=== PATIENT | male | born 1945 | race Caucasian/White ===

== ENCOUNTER 2017-01-26 08:36 | Day surgery (SDC) | payer OTHER ==
[2017-01-25 14:04] VITALS: BMI 22.6
[2017-01-26] MEDS ORDERED: LIDOCAINE HCL/PF 2% SDV 5ML VIAL ONE (10:24)
[2017-01-26 11:04] VITALS: TEMP 97.3
[2017-01-26 11:20] VITALS: BP 121/73; PULSE 60
--- NOTE | 2017-01-27 14:25 | PATH ---
Surgical Pathology Report Patient Name: YOSELYN OLSEN [facility]. Rec. #: [id number] /Age/Gender: 1945 (Age: 71) / M Account: [id number] Location: U-ENDOSCOPY Taken: 01/26/2017 Received: 01/26/2017 Reported: 01/27/2017 Physicians: Juan Francisco Carranza M.D. Specimen(s) Received A: BX DUODENUM B: BX NODULAR MUCOSA OF BODY Clinical History Epigastric pain despite medication Nodular mucosa in body Final Diagnosis A. DUODENUM, BIOPSY: DUODENAL MUCOSA WITH CHRONIC INFLAMMATION. NO HISTOLOGIC EVIDENCE OF GLUTEN SENSITIVE ENTEROPATHY (CELIAC DISEASE). B. STOMACH, BODY, NODULAR MUCOSA, BIOPSY: GASTRIC OXYNTIC MUCOSA WITH MODERATE CHRONIC GASTRITIS WITH FOCAL CHANGES SUGGESTIVE OF PPI EFFECT. IMMUNOSTAIN FOR H. PYLORI IS NEGATIVE FOR ORGANISMS. Electronically Signed Daljit Stevens M.D. Gross Description A. Received in formalin, labeled "biopsy duodenum" are 2 briscoe, irregular portions of soft tissue measuring 0.1 and 0.4 cm in greatest dimension. The specimens are submitted in toto in one cassette. B. Received in formalin, labeled "biopsy nodular mucosa in body" are 2 briscoe, irregular portions of soft tissue measuring 0.2 and 0.3 cm in greatest dimension. The specimens are submitted in toto in one cassette. 01/26/201701/26/2017
== END 2017-01-26 11:51 | disposition home or self-care (01) ==
LOC: JASU-ENDO 08:36
PROVIDERS: ATTEND Internal Medicine Gastroenterology
PROC: 0DB68ZX Excision of Stomach, Via Natural or Artificial Opening Endoscopic, Diagnostic (ICD-10-PCS; 2017-01-26)
PROC: 0DB98ZX Excision of Duodenum, Via Natural or Artificial Opening Endoscopic, Diagnostic (ICD-10-PCS; principal; 2017-01-26 09:30)
DX: R10.13 Epigastric pain (principal); K31.9 Disease of stomach and duodenum, unspecified
CPT/HCPCS: 88305-TC; 88342-TC

== ENCOUNTER 2021-01-24 00:10 | Emergency (ER) | payer OTHER ==
[2021-01-24 00:23] VITALS: BP 157/78; TEMP 97.5; BMI 20.5
[2021-01-24] MEDS ORDERED: FAMOTIDINE 20 MG/50 ML IVPB 20 MG/50 ML MG IVPB ONE ×2 (00:43→01:06)
[2021-01-24] MEDS ORDERED: MAG HYDROX/AL HYDROX/SIMETH 30 ML UNIT-DOSE CUP PO ONE (00:43)
[2021-01-24] MEDS ORDERED: LACTATED RINGERS SOLUTION 1000 ML INFUS.BAG IV ONE (00:44)
[2021-01-24] MEDS ORDERED: MAG HYDROX/AL HYDROX/SIMETH 30 ML UNIT-DOSE CUP ONE ×2 (00:49→01:06)
[2021-01-24] MEDS ORDERED: SUCRALFATE 1 GM TABLET (FP) PO ONE (01:01)
[2021-01-24] MEDS ORDERED: LIDOCAINE VISCOUS 2% ORAL/TOP 20 ML UNIT-DOSE CUP MM ONE (01:02)
[2021-01-24] MEDS ORDERED: LIDOCAINE VISCOUS 2% ORAL/TOP 20 ML UNIT-DOSE CUP ONE (01:14)
[2021-01-24] MEDS ORDERED: SUCRALFATE 1 GM TABLET (FP) ONE (01:15)
[2021-01-24 01:19] LABS: BASO % 0.6 % (0-2.0); HEMATOCRIT 40.9 % (35.4-49); HEMOGLOBIN 13.7 GM/dL (11.7-16.9); LYMPH % 28.7 % (8-40); MCH 29.5 pg (25.7-33.7); MCHC 33.4 g/dl (32.0-35.9); MEAN CELL VOLUME 88.4 fl (80-96); MEAN PLT VOLUME 9.3 fl (7.5-11.1); MONO % 10.5 % (3.8-10.2); NEUT % 56.2 % (42.8-82.8); PLATELET COUNT 195 K/MM3 (134-434); RBC 4.63 M/mm3 (4.00-5.60); RDW 14.1 % (11.9-15.9); WHITE BLOOD COUNT 6.2 K/mm3 (4.0-10.0)
[2021-01-24 01:35] LABS: CHLORIDE 103 mmol/L (98-107); POTASSIUM 4.1 mmol/L (3.5-5.1); SODIUM 137 mmol/L (136-145)
[2021-01-24 01:36] LABS: ALBUMIN 3.6 g/dl (3.4-5.0); ANION GAP 3 MMOL/L (8-16); BLOOD UREA NITROGEN 24.8 mg/dL (7-18); CALCIUM 9.3 mg/dL (8.5-10.1); CO2 31 mmol/L (21-32); GLUCOSE,RANDOM 155 mg/dL (74-106); LIPASE 166 U/L (73-393)
[2021-01-24 01:39] LABS: CREATININE 1.3 mg/dL (0.55-1.3); SGOT/AST 21 U/L (15-37); SGPT/ALT 25 U/L (13-61)
[2021-01-24 01:41] LABS: BILIRUBIN,TOTAL 0.5 mg/dL (0.2-1); TOT PROT 6.9 g/dl (6.4-8.2)
[2021-01-24 01:42] LABS: ALK PHOS 71 U/L (45-117)
[2021-01-24 05:39] VITALS: PULSE 86
== END 2021-01-24 05:59 | disposition home or self-care (01) ==
LOC: JER 00:10
PROC: 3E033GC Introduction of Other Therapeutic Substance into Peripheral Vein, Percutaneous Approach (ICD-10-PCS; principal; 2021-01-24)
DX: D3A.098 Benign carcinoid tumors of other sites (principal)
CPT/HCPCS: 36415; 74176-TC; 80053; 82550; 83690; 84484; 85025; 93005; 93010; 99285-25; C9803; U0003; U0005

== ENCOUNTER 2021-05-15 12:57 | Observation (INO) | payer OTHER ==
[2021-05-15 13:29] VITALS: BMI 21.8
[2021-05-15] MEDS ORDERED: FAMOTIDINE 20 MG/50 ML IVPB 20 MG/50 ML MG IVPB ONE ×2 (14:29→15:08)
[2021-05-15] MEDS ORDERED: LACTATED RINGERS SOLUTION 1000 ML INFUS.BAG IV ONE (14:29)
[2021-05-15] MEDS ORDERED: MAG HYDROX/AL HYDROX/SIMETH 30 ML UNIT-DOSE CUP PO ONE (14:44)
[2021-05-15] MEDS ORDERED: SUCRALFATE 1 GM TABLET (FP) PO ONE (14:44)
[2021-05-15] MEDS ORDERED: SUCRALFATE 1 GM TABLET (FP) ONE (15:08)
[2021-05-15 16:41] LABS: BASO % 0.3 % (0-2.0); EOS % 0.1 % (0-4.5); HEMATOCRIT 39.7 % (35.4-49); HEMOGLOBIN 13.3 GM/dL (11.7-16.9); LYMPH % 17.1 % (8-40); MCH 28.8 pg (25.7-33.7); MCHC 33.5 g/dl (32.0-35.9); MEAN CELL VOLUME 85.8 fl (80-96); MONO % 20.9 % (3.8-10.2); NEUT % 61.6 % (42.8-82.8); PLATELET COUNT 124 10^3/uL (134-434); RBC 4.63 M/mm3 (4.00-5.60); RDW 16.2 % (11.9-15.9); WHITE BLOOD COUNT 4.5 K/mm3 (4.0-10.0)
[2021-05-15 17:00] LABS: CHLORIDE 101 mmol/L (98-107); SODIUM 136 mmol/L (136-145)
[2021-05-15 17:03] LABS: ALBUMIN 3.7 g/dl (3.4-5.0); ANION GAP 8 MMOL/L (8-16); BLOOD UREA NITROGEN 16.1 mg/dL (7-18); CALCIUM 8.5 mg/dL (8.5-10.1); CO2 27 mmol/L (21-32); GLUCOSE,RANDOM 92 mg/dL (74-106)
[2021-05-15 17:06] LABS: CREATININE 1.1 mg/dL (0.55-1.3); SGOT/AST 25 U/L (15-37); SGPT/ALT 23 U/L (13-61)
[2021-05-15 17:08] LABS: BILIRUBIN,TOTAL 0.7 mg/dL (0.2-1); TOT PROT 6.6 g/dl (6.4-8.2)
[2021-05-15 17:09] LABS: ALK PHOS 65 U/L (45-117)
[2021-05-15 17:31] LABS: ANISOCYTOSIS 2+; MACROCYTOSIS 0; PLATELET ESTIMATE DECREASED
[2021-05-16] MEDS ORDERED: FAMOTIDINE 10 MG TABLET PO ONE (00:17)
[2021-05-16] MEDS ORDERED: MAG HYDROX/AL HYDROX/SIMETH 30 ML UNIT-DOSE CUP PO ONE (00:18)
[2021-05-16] MEDS ORDERED: SUCRALFATE 1 GM TABLET (FP) PO ONE (00:18)
[2021-05-16] MEDS ORDERED: FAMOTIDINE 10 MG TABLET ONE (00:20)
[2021-05-16] MEDS ORDERED: SUCRALFATE 1 GM TABLET (FP) ONE (00:20)
[2021-05-16] MEDS ORDERED: MAG HYDROX/AL HYDROX/SIMETH 30 ML UNIT-DOSE CUP ONE (00:21)
[2021-05-16] MEDS ORDERED: ONDANSETRON 4 MG/2 ML VIAL IVPUSH ONE (02:06)
[2021-05-16] MEDS ORDERED: ONDANSETRON 4 MG/2 ML VIAL ONE (02:13)
[2021-05-16 08:29] LABS: HEMATOCRIT 42.8 % (35.4-49); HEMOGLOBIN 14.3 GM/dL (11.7-16.9); MCH 28.7 pg (25.7-33.7); MCHC 33.5 g/dl (32.0-35.9); MEAN CELL VOLUME 85.8 fl (80-96); PLATELET COUNT 125 10^3/uL (134-434); RBC 4.99 M/mm3 (4.00-5.60); WHITE BLOOD COUNT 4.4 K/mm3 (4.0-10.0)
[2021-05-16] MEDS ORDERED: GABAPENTIN 100 MG CAPSULE ONE (08:45)
[2021-05-16] MEDS ORDERED: LISINOPRIL 5 MG TABLET ONE (08:45)
[2021-05-16] MEDS ORDERED: PANTOPRAZOLE 20 MG TABLET PO ONE (08:45)
[2021-05-16] MEDS ORDERED: ENOXAPARIN NA (PORCINE) 40 MG/0.4 ML DISP.SYRIN SQ ONE (08:46)
[2021-05-16 08:55] LABS: CHOLESTEROL 160 mg/dL (50-200)
[2021-05-16 08:56] LABS: TRIGLYCERIDES 69 mg/dL (0-150)
[2021-05-16 08:57] LABS: LDL CHOLESTEROL (ONLY SJRH) 90 mg/dL (5-100)
[2021-05-16 08:58] LABS: HDL CHOLESTEROL 59 mg/dL (40-60)
[2021-05-16 08:59] LABS: LDH 197 U/L (87-246)
[2021-05-16 09:01] LABS: N-TERMINAL BNP 529.9 pg/ml (5-450)
[2021-05-16] MEDS: LISINOPRIL 5 MG TABLET PO SCH (09:02)
[2021-05-16] MEDS: ENOXAPARIN NA (PORCINE) 40 MG/0.4 ML DISP.SYRIN SQ SCH (09:02)
[2021-05-16] MEDS: GABAPENTIN 300 MG CAPSULE PO SCH ×2 (09:02→22:23)
[2021-05-16] MEDS ORDERED: CLOPIDOGREL BISULFATE 75 MG TABLET (FP) PO SCH (10:00)
[2021-05-16] MEDS ORDERED: PANTOPRAZOLE 20 MG TABLET PO SCH (10:00)
[2021-05-16] MEDS ORDERED: POLYETHYLENE GLYCOL (HEALTHYLAX) 3350 17 GM PACKET ONE (18:57)
[2021-05-16] MEDS: POLYETHYLENE GLYCOL (HEALTHYLAX) 3350 17 GM PACKET PO SCH (19:00)
[2021-05-16] MEDS: ATORVASTATIN CA 20 MG TABLET (FP) PO SCH (22:23)
[2021-05-17] MEDS: PANTOPRAZOLE 40 MG TABLET PO SCH (06:23)
[2021-05-17 07:59] LABS: MCHC 33.3 g/dl (32.0-35.9); MEAN CELL VOLUME 87.3 fl (80-96); MEAN PLT VOLUME 9.5 fl (7.5-11.1); PLATELET COUNT 134 10^3/uL (134-434); RBC 5.16 M/mm3 (4.00-5.60); RDW 16.4 % (11.9-15.9); WHITE BLOOD COUNT 4.5 K/mm3 (4.0-10.0)
[2021-05-17] MEDS ORDERED: BENZOCAINE/MENTH/CETYLPYRD CL 1 EACH LOZENGE MM PRN (09:03)
[2021-05-17 09:43] LABS: ERYTHROCYTE SEDIMENTATION RATE 4 mm/hr (0-20)
[2021-05-17] MEDS: POLYETHYLENE GLYCOL (HEALTHYLAX) 3350 17 GM PACKET PO SCH ×2 (10:22→10:35)
[2021-05-17] MEDS: GABAPENTIN 300 MG CAPSULE PO SCH ×2 (10:22→21:27)
[2021-05-17] MEDS: ENOXAPARIN NA (PORCINE) 40 MG/0.4 ML DISP.SYRIN SQ SCH (10:22)
[2021-05-17] MEDS: DOCUSATE SODIUM 100 MG CAPSULE (FP) PO SCH ×2 (10:22→10:35)
[2021-05-17] MEDS: LISINOPRIL 5 MG TABLET PO SCH (10:22)
[2021-05-17] MEDS ORDERED: CASIRIVIMAB (REGN10933) 600 MG, IMDEVIMAB (REGN10987) 600 MG in SODIUM CHLORIDE 100 ML IVPB ONE ×2 (10:39→13:00)
[2021-05-17] MEDS ORDERED: SODIUM CHLORIDE 250 ML IV ONE (15:15)
[2021-05-17] MEDS ORDERED: SODIUM CHLORIDE 1,000 ML IV SCH (15:15)
[2021-05-17] MEDS ORDERED: IBUPROFEN 200 MG TABLET PO ONE (19:08)
[2021-05-17] MEDS: ATORVASTATIN CA 20 MG TABLET (FP) PO SCH (21:27)
[2021-05-17 22:00] VITALS: PULSE 18
[2021-05-17] MEDS ORDERED: MIRTAZAPINE 15 MG TABLET (FP) PO SCH (22:00)
[2021-05-18] MEDS: PANTOPRAZOLE 40 MG TABLET PO SCH (05:28)
[2021-05-18] MEDS: ENOXAPARIN NA (PORCINE) 40 MG/0.4 ML DISP.SYRIN SQ SCH (09:54)
[2021-05-18] MEDS: POLYETHYLENE GLYCOL (HEALTHYLAX) 3350 17 GM PACKET PO SCH (09:55)
[2021-05-18] MEDS: GABAPENTIN 300 MG CAPSULE PO SCH (09:55)
[2021-05-18] MEDS: LISINOPRIL 5 MG TABLET PO SCH (09:55)
[2021-05-18] MEDS: DOCUSATE SODIUM 100 MG CAPSULE (FP) PO SCH (09:55)
[2021-05-18 11:15] VITALS: TEMP 99
[2021-05-18] MEDS ORDERED: PT OWN MED DRAWER 7, Y5N ONE (11:36)
[2021-05-18 13:24] VITALS: BP 104/62
== END 2021-05-18 12:24 | disposition home or self-care (01) ==
LOC: JER 12:57 → INTOOBSV 17:40 → JERBED 17:40 → J4S 05-16 20:02
PROVIDERS: ADMIT Internal Medicine; ATTEND Internal Medicine
PROC: 3E033GC Introduction of Other Therapeutic Substance into Peripheral Vein, Percutaneous Approach (ICD-10-PCS; principal; 2021-05-15)
PROC: 3E023GC Introduction of Other Therapeutic Substance into Muscle, Percutaneous Approach (ICD-10-PCS; 2021-05-15)
PROC: 3E033GC Introduction of Other Therapeutic Substance into Peripheral Vein, Percutaneous Approach (ICD-10-PCS; 2021-05-15)
PROC: 3E0337Z Introduction of Electrolytic and Water Balance Substance into Peripheral Vein, Percutaneous Approach (ICD-10-PCS; 2021-05-15)
DX: U07.1 COVID-19 (principal); C85.90 Non-Hodgkin lymphoma, unspecified, unspecified site; Z87.891 Personal history of nicotine dependence; G89.29 Other chronic pain; M54.9 Dorsalgia, unspecified; K25.9 Gastric ulcer, unspecified as acute or chronic, without hemorrhage or perforation; I25.10 Atherosclerotic heart disease of native coronary artery without angina pectoris; I11.9 Hypertensive heart disease without heart failure; K46.9 Unspecified abdominal hernia without obstruction or gangrene; K21.9 Gastro-esophageal reflux disease without esophagitis; E78.5 Hyperlipidemia, unspecified; Z85.79 Personal history of other malignant neoplasms of lymphoid, hematopoietic and related tissues; Z88.8 Allergy status to other drugs, medicaments and biological substances; Z91.041 Radiographic dye allergy status; R94.31 Abnormal electrocardiogram [ECG] [EKG]
CPT/HCPCS: 36415; 71045-TC-FY; 80053; 80061; 82550; 82553; 82728; 83036; 83615; 83721; 83880; 84439; 84443; 84484; 85025; 85027; 85379; 85651; 86301; 93005; 93010; 96361; 96365; 96367; 96372; 96375; 99285-25; C9803; G0378; M0243; Q0243; U0003; U0005

== ENCOUNTER 2022-05-30 15:11 | Emergency (ER) | payer OTHER ==
[2022-05-30 15:20] VITALS: BP 121/73; PULSE 72; RESP 16; TEMP 97.8
[2022-05-30] MEDS ORDERED: LIDOCAINE 5% TOPICAL PATCH TP ONE (15:46)
[2022-05-30] MEDS ORDERED: SODIUM CHLORIDE 1,000 ML IV STA (15:46)
[2022-05-30] MEDS ORDERED: LIDOCAINE 5% TOPICAL PATCH ONE (16:10)
[2022-05-30 16:33] LABS: BASO % 0.5 % (0-2.0); EOS % 1.8 % (0-4.5); HEMATOCRIT 41.1 % (35.4-49); HEMOGLOBIN 13.5 GM/dL (11.7-16.9); LYMPH % 22.1 % (8-40); MCH 28.1 pg (25.7-33.7); MEAN CELL VOLUME 85.2 fl (80-96); MEAN PLT VOLUME 8.5 fl (7.5-11.1); MONO % 10.5 % (3.8-10.2); NEUT % 65.1 % (42.8-82.8); PLATELET COUNT 177 10^3/uL (134-434); RBC 4.82 M/mm3 (4.00-5.60); RDW 15.4 % (11.9-15.9); WHITE BLOOD COUNT 5.5 K/mm3 (4.0-10.0)
[2022-05-30 16:45] LABS: PH,URINE 5.5 (5.0-8.0); URINE APPEARANCE CLEAR; URINE BILIRUBIN NEGATIVE (NEGATIVE); URINE COLOR YELLOW; URINE GLUCOSE (UA) NEGATIVE (NEGATIVE); URINE KETONE NEGATIVE (NEGATIVE); URINE LEUK ESTERASE NEGATIVE (NEGATIVE); URINE NITRITE NEGATIVE (NEGATIVE); URINE PROTEIN NEGATIVE (NEGATIVE); URINE UROBILINOGEN 0.2 mg/dL (0.2-1.0)
[2022-05-30 16:48] LABS: CALCIUM 9.2 mg/dL (8.5-10.1)
[2022-05-30 16:49] LABS: ALBUMIN 3.5 g/dl (3.4-5.0); BLOOD UREA NITROGEN 19.3 mg/dL (7-18)
[2022-05-30 16:52] LABS: CREATININE 1.1 mg/dL (0.55-1.3)
[2022-05-30 16:53] LABS: BILIRUBIN,TOTAL 0.5 mg/dL (0.2-1); TOT PROT 6.6 g/dl (6.4-8.2)
== END 2022-05-30 20:46 | disposition home or self-care (01) ==
LOC: JER 15:11
PROC: 3E0337Z Introduction of Electrolytic and Water Balance Substance into Peripheral Vein, Percutaneous Approach (ICD-10-PCS; principal; 2022-05-30)
DX: B02.9 Zoster without complications (principal)
CPT/HCPCS: 36415; 74176-TC; 80053; 81003; 85025; 87086; 87186; 99284-25

== ENCOUNTER 2025-07-04 14:13 | Observation (INO) | payer OTHER ==
[2025-07-04 15:37] LABS: ABSOLUTE IMMATURE GRANULOCYTES 0.02 x10^3/uL (0.0-0.031); BASOPHILS # 0.05 x10^3/uL (0.01-0.08); EOSINOPHIL % 0.8 % (0.8-7.0); EOSINOPHILS # 0.07 x10^3/uL (0.04-0.54); MCHC 31.0 g/dl (32.3-36.5); MEAN CELL VOLUME 83.5 fl (79.0-92.2); MEAN PLT VOLUME 10.5 fl (9.4-12.4); MONOCYTE # 0.88 x10^3/uL (0.30-0.82); MONOCYTE % 10.1 % (5.3-12.2); RDW 19.4 % (12.2-16.6)
[2025-07-04 16:09] LABS: GLUCOSE,RANDOM 90.0 mg/dL (74-106)
[2025-07-04 16:10] LABS: TOT PROT 6.5 g/dl (6.4-8.2)
[2025-07-04 16:11] LABS: CO2 27.0 mmol/L (21-32)
[2025-07-04 16:12] LABS: ALK PHOS 63.0 U/L (40-150)
[2025-07-04 16:15] LABS: CREATININE 0.94 mg/dL (0.55-1.3); SGOT/AST 22.0 U/L (5-34); SGPT/ALT 14.0 U/L (0-55)
[2025-07-04] MEDS ORDERED: FUROSEMIDE 40 MG/4 ML INJECTABLE VIAL ONE (16:23)
[2025-07-04 16:27] LABS: N-TERMINAL BNP 572.6 pg/mL (0-299.9)
[2025-07-04] MEDS: FUROSEMIDE 40 MG/4 ML INJECTABLE VIAL IVPUSH ONE (16:28)
[2025-07-04 19:08] LABS: HIV INTERPRETATION NEGATIVE (NEGATIVE)
[2025-07-04 19:11] LABS: HCV DIAGNOSTIC IN-HOUSE W/RFLX NON-REACTIVE (NONREACTIVE)
[2025-07-04 20:41] VITALS: BMI 19.6
[2025-07-04] MEDS: MIRTAZAPINE 15 MG TABLET (FP) PO SCH (21:07)
[2025-07-04] MEDS: CLOPIDOGREL BISULFATE 75 MG TABLET (FP) PO SCH (21:07)
[2025-07-04] MEDS: ATORVASTATIN CA 40 MG TABLET (FP) PO SCH (21:07)
[2025-07-04] MEDS: GABAPENTIN 300 MG CAPSULE PO SCH (21:07)
[2025-07-05 06:58] LABS: ABSOLUTE IMMATURE GRANULOCYTES 0.02 x10^3/uL (0.0-0.031); BASOPHILS # 0.03 x10^3/uL (0.01-0.08); EOSINOPHIL % 0.1 % (0.8-7.0); EOSINOPHILS # 0.01 x10^3/uL (0.04-0.54); MCHC 31.1 g/dl (32.3-36.5); MEAN CELL VOLUME 81.8 fl (79.0-92.2); MEAN PLT VOLUME 11.2 fl (9.4-12.4); MONOCYTE # 1.20 x10^3/uL (0.30-0.82); MONOCYTE % 15.7 % (5.3-12.2); RDW 19.7 % (12.2-16.6)
[2025-07-05 07:02] LABS: GLUCOSE,RANDOM 97.0 mg/dL (74-106)
[2025-07-05 07:03] LABS: TOT PROT 6.4 g/dl (6.4-8.2)
[2025-07-05 07:04] LABS: CO2 30.0 mmol/L (21-32)
[2025-07-05 07:06] LABS: ALK PHOS 61.0 U/L (40-150)
[2025-07-05 07:08] LABS: CREATININE 0.93 mg/dL (0.55-1.3); SGOT/AST 18.0 U/L (5-34); SGPT/ALT 15.0 U/L (0-55)
[2025-07-05] MEDS: PANTOPRAZOLE SODIUM 40 MG VIAL IVPUSH SCH (09:48)
[2025-07-05] MEDS: ISOSORBIDE MONONITRATE 30 MG TAB.SR.24H (FP) PO SCH (09:48)
[2025-07-05] MEDS: FUROSEMIDE 40 MG/4 ML INJECTABLE VIAL IVPUSH SCH (09:48)
[2025-07-05] MEDS: ENOXAPARIN NA (PORCINE) 40 MG/0.4 ML DISP.SYRIN SQ SCH (09:48)
[2025-07-05] MEDS: ASPIRIN COATED 81 MG TABLET.EC PO SCH (09:48)
[2025-07-05] MEDS ORDERED: CLOPIDOGREL BISULFATE 75 MG TABLET (FP) PO SCH (10:00)
[2025-07-05 16:04] LABS: IRON SERUM 17.0 ug/dL (50-175)
[2025-07-05] MEDS: IRON SUCROSE INJECTION 200 MG in SODIUM CHLORIDE 100 ML IVPB ONE (17:22)
[2025-07-06 08:34] LABS: ABSOLUTE IMMATURE GRANULOCYTES 0.03 x10^3/uL (0.0-0.031); BASOPHILS # 0.03 x10^3/uL (0.01-0.08); EOSINOPHIL % 0.1 % (0.8-7.0); EOSINOPHILS # 0.01 x10^3/uL (0.04-0.54); MCHC 31.6 g/dl (32.3-36.5); MEAN CELL VOLUME 81.9 fl (79.0-92.2); MEAN PLT VOLUME 10.7 fl (9.4-12.4); MONOCYTE # 1.27 x10^3/uL (0.30-0.82); MONOCYTE % 15.9 % (5.3-12.2); RDW 19.9 % (12.2-16.6)
[2025-07-06 09:34] LABS: GLUCOSE,RANDOM 98.0 mg/dL (74-106); TOT PROT 6.7 g/dl (6.4-8.2)
[2025-07-06 09:35] LABS: CO2 27.0 mmol/L (21-32)
[2025-07-06 09:37] LABS: ALK PHOS 60.0 U/L (40-150)
[2025-07-06 09:39] LABS: SGOT/AST 18.0 U/L (5-34); SGPT/ALT 13.0 U/L (0-55)
[2025-07-06 09:40] LABS: CREATININE 0.92 mg/dL (0.55-1.3)
[2025-07-06] MEDS: FUROSEMIDE 20 MG TABLET (FP) PO SCH (09:54)
[2025-07-06] MEDS: ISOSORBIDE MONONITRATE 30 MG TAB.SR.24H (FP) PO SCH (09:54)
[2025-07-06] MEDS: MAG HYDROX/AL HYDROX/SIMETH -MYLANTA- ORAL SUSPENSION PO ONE (10:26)
[2025-07-06] MEDS ORDERED: MAG HYDROX/AL HYDROX/SIMETH 30 ML UNIT-DOSE CUP PO SCH (14:35)
[2025-07-06] MEDS: MAG HYDROX/AL HYDROX/SIMETH -MYLANTA- ORAL SUSPENSION PO SCH (15:24)
[2025-07-06] MEDS: DOCUSATE SODIUM 100 MG CAPSULE (FP) PO ONE (17:10)
[2025-07-06] MEDS: MAGNESIUM HYDROX 2400MG/30ML ORAL SUSPENSION 30 ML CUP PO ONE (17:39)
[2025-07-06] MEDS ORDERED: MAG HYDROX/AL HYDROX/SIMETH 30 ML UNIT-DOSE CUP PO PRN (18:04)
[2025-07-06] MEDS: MAG HYDROX/AL HYDROX/SIMETH 30 ML UNIT-DOSE CUP PO SCH (19:25)
[2025-07-07 07:02] VITALS: RESP 18
[2025-07-07 09:09] LABS: ABSOLUTE IMMATURE GRANULOCYTES 0.01 x10^3/uL (0.0-0.031); BASOPHILS # 0.02 x10^3/uL (0.01-0.08); EOSINOPHIL % 0.2 % (0.8-7.0); EOSINOPHILS # 0.02 x10^3/uL (0.04-0.54); MCHC 30.8 g/dl (32.3-36.5); MEAN CELL VOLUME 82.8 fl (79.0-92.2); MEAN PLT VOLUME 10.7 fl (9.4-12.4); MONOCYTE # 1.22 x10^3/uL (0.30-0.82); MONOCYTE % 13.7 % (5.3-12.2); RDW 20.1 % (12.2-16.6)
[2025-07-07 09:45] LABS: GLUCOSE,RANDOM 151.0 mg/dL (74-106)
[2025-07-07 09:46] LABS: TOT PROT 6.9 g/dl (6.4-8.2)
[2025-07-07 09:47] LABS: CO2 29.0 mmol/L (21-32)
[2025-07-07 09:48] LABS: ALK PHOS 60.0 U/L (40-150)
[2025-07-07 09:51] LABS: CREATININE 0.93 mg/dL (0.55-1.3); SGOT/AST 21.0 U/L (5-34); SGPT/ALT 14.0 U/L (0-55)
[2025-07-07 18:15] VITALS: BP 116/74; PULSE 85; TEMP 98.2
== END 2025-07-07 18:32 | disposition home or self-care (01) ==
LOC: JER 14:13 → JERBED 16:30 → J6W TELE 18:39
PROVIDERS: ADMIT Internal Medicine; ATTEND Internal Medicine
PROC: 3E023GC Introduction of Other Therapeutic Substance into Muscle, Percutaneous Approach (ICD-10-PCS; principal; 2025-07-04)
PROC: 3E033GC Introduction of Other Therapeutic Substance into Peripheral Vein, Percutaneous Approach (ICD-10-PCS; 2025-07-04)
DX: I50.30 Unspecified diastolic (congestive) heart failure (principal); I50.23 Acute on chronic systolic (congestive) heart failure; I25.10 Atherosclerotic heart disease of native coronary artery without angina pectoris; Z88.8 Allergy status to other drugs, medicaments and biological substances
CPT/HCPCS: 36415; 71045-TC-FY; 80053; 82272; 82728; 83036; 83540; 83550; 83690; 83735; 83880; 84100; 84443; 84484; 85025; 86803; 87389; 93005; 93010; 96365; 96372; 96375; 96376; 99285-25; G0378; J1756